=== PATIENT | female | born 1990 | race Caucasian/White ===

== ENCOUNTER → 2016-08-15 | Outpatient (CLI) | payer BC ==
[~2016-08-15] MED LIST: /VITACHEW PO; ASPI81TA85 PO
--- NOTE | 2016-08-15 19:03 | REP ---
Pelvic sonography: History: Left pelvic pain. Findings: Transabdominal and transvaginal scanning are performed. Uterine dimensions are normal at 7.0 x 3.3 x 5.2 cm. Endometrial echo is 0.4 cm thick and centrally placed. Uterus is somewhat retroverted. The IUD is noted in the uterine endometrium. A trace of endometrial fluid is seen. No free fluid is seen in the cul-de-sac. Visualized bladder wakefield are smooth. The ovaries are normal bilaterally. Right ovarian dimensions are 3.1 x 2.2 x 2.4 cm. The left ovary measures 2.9 x 1.8 x 1.8 cm. Normal ovarian Doppler flow is seen bilaterally. Impression: Normal pelvic sonography. Signed by Micah Calvillo MD 08/15/2016 06:54 P
== END ==
LOC: M RAD 15:15
PROVIDERS: ATTEND Obstetrics & Gynecology
DX: R10.2 Pelvic and perineal pain (principal); Z97.5 Presence of (intrauterine) contraceptive device

== ENCOUNTER → 2016-10-02 | Outpatient (REF) | payer BC ==
[2016-10-02 14:21] LABS: BASO # 0.1 K/mm3 (0.0-0.2); BASO % 0.8 % (0.0-1.0); EOS # 0.2 K/mm3 (0.0-0.50); EOS % 2.1 % (0.0-3.0); LARGE UNSTAINED CELL # 0.1 K/mm3 (0.0-0.4); LARGE UNSTAINED CELL % 1.8 % (0.0-4.0); LYMPH # 2.3 K/mm3 (1.5-6.5); MEAN CORPUSCULAR HEMOGLOBIN 31.6 pg (27.0-33.0); MEAN CORPUSCULAR HGB CONC 33.3 g/dl (32.0-36.5); MEAN CORPUSCULAR VOLUME 94.9 fl (80.0-96.0); MONO # 0.5 K/mm3 (0.0-0.8); MONO % 6.8 % (0.0-5.0); NEUTROPHILS # 4.2 K/mm3 (1.8-7.7); NEUTROPHILS % 58.5 % (36.0-66.0); PLATELET COUNT, AUTOMATED 306 k/mm3 (150-450); WHITE BLOOD COUNT 7.1 K/mm3 (4.0-10.0)
[2016-10-02 15:26] LABS: BLOOD UREA NITROGEN 8 MG/DL (7-18); CREATININE FOR GFR 0.68 MG/DL (0.55-1.02); GLOMERULAR FILTRATION RATE > 60.0 (>60); GLUCOSE, FASTING 72 MG/DL (70-105)
[2016-10-02 15:27] LABS: ALBUMIN/GLOBULIN RATIO 1.11 (1.00-1.93); ALKALINE PHOSPHATASE 83 U/L (45-117); ALT/SGPT 19 U/L (12-78); ANION GAP 7 MEQ/L (8-16); AST/SGOT 12 U/L (15-37); BILIRUBIN,TOTAL 0.3 MG/DL (0.2-1.0); CALCIUM LEVEL 8.6 MG/DL (8.5-10.1); CARBON DIOXIDE LEVEL 28 MEQ/L (21-32); CHLORIDE LEVEL 105 MEQ/L (98-107); FREE T4 1.25 NG/DL (0.76-1.46); POTASSIUM SERUM 3.9 MEQ/L (3.5-5.1); SODIUM LEVEL 140 MEQ/L (136-145); TOTAL PROTEIN 7.6 GM/DL (6.4-8.2)
== END ==
LOC: M LABDRAWP 13:15
PROVIDERS: ATTEND Nurse Practitioner Family
DX: F41.9 Anxiety disorder, unspecified (principal); G43.709 Chronic migraine without aura, not intractable, without status migrainosus

== ENCOUNTER → 2016-10-02 | Outpatient (REF) | payer BC | LOC: M SFHCWAGY 09:54 | PROVIDERS: ATTEND Nurse Practitioner Women's Health | DX: Z12.4 Encounter for screening for malignant neoplasm of cervix (principal); R87.610 Atypical squamous cells of undetermined significance on cytologic smear of cervix (ASC-US) ==

== ENCOUNTER → 2016-11-28 | Outpatient (CLI) | payer BC ==
[~2016-11-28] MED LIST changes: +E-Z-GAS II EFFERVESCENT PACKET (SODIUM BICARB./CITRIC ACID/SIMETHICONE) As Ordered ONE; +E-Z-HD 98% w/w 340GM SUSP BTL As Ordered ONE; +E-Z-PAQUE 96% w/w SUSP 176GM BTL As Ordered ONE; +OMEP40CA2 PO
--- NOTE | 2016-11-28 15:18 | REP ---
UPPER GI AIR CONTRAST AND SMALL BOWEL FOLLOW THROUGH: The procedure was performed under the direct supervision of Dr. Trevino. The images were reviewed with Dr. Trevino. 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 The intestinal gas pattern is nonspecific. There is a T-shaped IUD in the central pelvis. Liquid barium and gas-producing granules are given in the erect position as well a liquid barium in the prone oblique position in order to perform a double contrast upper GI examination. Additionally, liquid barium was given at the end of the examination in order to perform a small bowel follow through. The oral and pharyngeal stages of deglutition are unremarkable. Esophageal transport is prompt and efficient and there is no esophagitis, stricture, mucosal ring or hiatal hernia. There is mild gastroesophageal reflux demonstrated to below the level of the matteo. The stomach wakefield are normally outlined. The rugal folds are smooth and regular. There is no gastritis, neoplasm or ulcer disease. The duodenal wakefield are normally outlined. The mucosal folds are smooth and regular. There is no duodenitis, pancreatitis, peptic ulcer disease or neoplasm. The visualized portion of the proximal small bowel appears normal in course and caliber. The barium column was followed through the small bowel to the level of the terminal ileum. Small bowel transit time is approximately 1 hour. During fluoroscopy, gentle palpation shows all loops are freely moveable and pliable. There are no fixed or angulated loops. The small bowel mucosal pattern is normal in course and caliber. There is no transition to suggest a partial small bowel obstruction. Spot filming of terminal ileum shows it to be unremarkable. IMPRESSION: There is mild gastroesophageal reflux demonstrated to below the level of the matteo, otherwise unremarkable double contrast upper GI and small bowel follow through examination. 2 minutes and 25 seconds of fluoroscopy time was utilized for this procedure. Reviewed by YINA Hernandez 11/28/2016 03:36 PEdited and Signed by Ranjit Trevino MD 11/28/2016 10:09 P
== END ==
LOC: M RAD 09:09
PROVIDERS: ATTEND Nurse Practitioner Adult Health
DX: K21.0 Gastro-esophageal reflux disease with esophagitis (principal)

== ENCOUNTER 2016-12-18 10:35 | Emergency (ER) | payer BC ==
[~2016-12-18] VITALS: Ht 167.6 cm; Wt 90.0 kg
[~2016-12-18 10:35] MED LIST changes: -E-Z-GAS II EFFERVESCENT PACKET (SODIUM BICARB./CITRIC ACID/SIMETHICONE) As Ordered ONE; -E-Z-HD 98% w/w 340GM SUSP BTL As Ordered ONE; -E-Z-PAQUE 96% w/w SUSP 176GM BTL As Ordered ONE; -OMEP40CA2 PO
[2016-12-18] MEDS ORDERED: OMEP40CA2 PO (10:45)
--- NOTE | 2016-12-18 11:49 | REP ---
CT Head without contrast HISTORY: Trauma COMPARISON: 02/19/2009 There is no intraparenchymal hemorrhage, acute infarct, mass or midline shift. The ventricular system is normal in appearance. There is no extra cerebral collection. There is no fracture. The visualized sinuses are clear. IMPRESSION: There is no intracranial lesion. Signed by Cal Machuca MD 12/18/2016 11:40 A
[2016-12-18 12:06] VITALS: BP 111/74
== END 2016-12-18 12:05 | disposition home or self-care (01) ==
LOC: M ED 10:35
DX: S09.90XA Unspecified injury of head, initial encounter (principal); W20.8XXA Other cause of strike by thrown, projected or falling object, initial encounter; Y92.099 Unspecified place in other non-institutional residence as the place of occurrence of the external cause; Y93.89 Activity, other specified; Y99.9 Unspecified external cause status

== ENCOUNTER → 2017-03-26 | Outpatient (REF) | payer BC ==
[~2017-03-26] MED LIST changes: +OMEP40CA2 PO
== END ==
LOC: M SFHCPLAZ 11:40
PROVIDERS: ATTEND Family Medicine
DX: E55.9 Vitamin D deficiency, unspecified (principal)

== ENCOUNTER → 2017-10-13 | Outpatient (REF) | payer BC | LOC: M SFHCWAGY 10:44 | DX: Z12.4 Encounter for screening for malignant neoplasm of cervix (principal) | CPT/HCPCS: G0123 ==

== ENCOUNTER → 2017-10-31 | Outpatient (CLI) | payer BC | LOC: M LRY 16:44 | DX: M25.561 Pain in right knee (principal) | CPT/HCPCS: G0463 ==

== ENCOUNTER → 2018-06-09 | Outpatient (REF) | payer BC ==
[2018-06-09 11:28] LABS: CHOLESTEROL RISK RATIO 3.707 (<5)
== END ==
LOC: M SFHCPLAZ 09:07
PROVIDERS: ATTEND Family Medicine
DX: Z13.1 Encounter for screening for diabetes mellitus (principal); E66.9 Obesity, unspecified; Z13.220 Encounter for screening for lipoid disorders

== ENCOUNTER 2018-09-21 11:02 | Emergency (ER) | payer BC ==
[~2018-09-21] VITALS: Ht 167.6 cm; Wt 86.4 kg
[~2018-09-21 11:02] MED LIST changes: -/VITACHEW PO; +FLIN1CHW3 PO
--- NOTE | 2018-09-21 12:39 | REP ---
CT Head without contrast HISTORY: Head injury COMPARISON: 10/18/2016 There is no intraparenchymal hemorrhage, acute infarct, mass or midline shift. The ventricular system is normal in appearance. There is no extra cerebral collection. There is no fracture. The visualized sinuses are clear. IMPRESSION: There is no intracranial lesion. Electronically Signed by Cal Machuca MD 09/21/2018 12:29 P
[2018-09-21 13:12] VITALS: BP 118/65
--- NOTE | 2018-09-21 13:54 | REP ---
MAXILLOFACIAL CT WITHOUT CONTRAST: HISTORY: Injury. The sinuses are clear. The ostiomeatal units are patent. The middle and inferior nasal turbinates are partially paradoxical. There is minimal deviation of the nasal septum to the left. The cribriform plate, medial wakefield of the orbits and optic canals are intact. The carotid canals form a segment of the posterolateral wakefield of the sphenoid sinus. There is a fracture of the nasal bone. IMPRESSION: 1. There is no acute or chronic sinusitis. 2. Nasal bone fracture. Electronically Signed by Cal Machuca MD 09/21/2018 01:59 P
== END 2018-09-21 13:15 | disposition home or self-care (01) ==
LOC: M ED 11:02
DX: S02.2XXA Fracture of nasal bones, initial encounter for closed fracture (principal); W22.8XXA Striking against or struck by other objects, initial encounter; Y92.018 Other place in single-family (private) house as the place of occurrence of the external cause; Z86.73 Personal history of transient ischemic attack (TIA), and cerebral infarction without residual deficits; Z79.82 Long term (current) use of aspirin; Z88.2 Allergy status to sulfonamides; Z88.8 Allergy status to other drugs, medicaments and biological substances

== ENCOUNTER → 2018-11-23 | Outpatient (REF) | payer BC ==
[2018-11-25 14:08] LABS: HPV HYBRID CAPTURE II Negative (Negative)
== END ==
LOC: M SFHCWAGY 14:48
PROVIDERS: ATTEND Nurse Practitioner Women's Health
DX: Z12.4 Encounter for screening for malignant neoplasm of cervix (principal)

== ENCOUNTER → 2018-11-26 | Outpatient (CLI) | payer BC ==
[2018-11-26 16:36] LABS: BASO % 0.2 % (0.0-1.0); HEMATOCRIT 40.1 % (36.0-47.0); HEMOGLOBIN 13.2 g/dl (12.0-15.5); LYMPH # 1.4 10^3/uL (1.5-6.5); LYMPH % 11.3 % (24.0-44.0); MEAN CORPUSCULAR HEMOGLOBIN 31.9 pg (27.0-33.0); MEAN CORPUSCULAR HGB CONC 32.9 g/dl (32.0-36.5); MEAN CORPUSCULAR VOLUME 96.9 fl (80.0-96.0); MONO # 0.4 10^3/uL (0.0-0.8); MONO % 2.8 % (0.0-5.0); NEUTROPHILS # 10.8 10^3/uL (1.8-7.7); PLATELET COUNT, AUTOMATED 305 10^3/uL (150-450); RED BLOOD COUNT 4.14 10^6/uL (4.00-5.40); WHITE BLOOD COUNT 12.7 10^3/uL (4.0-10.0)
[2018-11-26 17:08] LABS: ALBUMIN 3.8 GM/DL (3.2-5.2); ALT/SGPT 20 U/L (12-78); BILIRUBIN,TOTAL 0.1 MG/DL (0.2-1.0); BLOOD UREA NITROGEN 12 MG/DL (7-18); CALCIUM LEVEL 9.1 MG/DL (8.5-10.1); CARBON DIOXIDE LEVEL 26 MEQ/L (21-32); CHLORIDE LEVEL 107 MEQ/L (98-107); CREATININE FOR GFR 0.72 MG/DL (0.55-1.30); FREE T4 0.98 NG/DL (0.76-1.46); GLOMERULAR FILTRATION RATE > 60.0 (>60); GLUCOSE, FASTING 101 MG/DL (70-100); POTASSIUM SERUM 4.3 MEQ/L (3.5-5.1); RHEUMATOID FACTOR QUANT < 10.0 IU/ML (<15.0); SODIUM LEVEL 141 MEQ/L (136-145); THYROID STIMULATING HORMONE 0.673 uIU/ML (0.358-3.740); TOTAL PROTEIN 7.7 GM/DL (6.4-8.2); VITAMIN B12 LEVEL 840 PG/ML
[2018-11-26 17:18] LABS: ERYTHROCYTE SEDIMENTATION RATE 10 mm/hr (0-20)
[2018-11-26 17:40] LABS: HEMOGLOBIN A1c 5.3 %
[2018-12-01 14:22] LABS: ANTINUCLEAR ANTIBODIES DIRECT Negative (Negative); VITAMIN B1 LEVEL WHOLE BLOOD 116.8 nmol/L (66.5-200.0); VITAMIN B6,PYRIDOXAL PHOSPHATE 7.7 ug/L (2.0-32.8); VITAMIN E(ALPHA TOCOPHEROL) 8.4 mg/L (5.9-19.4); VITAMIN E(GAMMA TOCOPHEROL) 1.2 mg/L (0.7-4.9)
== END ==
LOC: M LAB 16:04
PROVIDERS: ATTEND Psychiatry & Neurology Neurology
DX: R51 Headache (principal); E07.9 Disorder of thyroid, unspecified; E11.9 Type 2 diabetes mellitus without complications; R41.0 Disorientation, unspecified

== ENCOUNTER → 2020-01-06 | Outpatient (REF) | payer BC ==
[~2020-01-06] MED LIST changes: -OMEP40CA2 PO; +OMEP40CA97 PO
[2020-01-06 20:51] LABS: CHLAMYDIA DNA AMPLIFICATION POSITIVE (NEGATIVE); GC DNA AMPLIFICATION NEGATIVE (NEGATIVE)
== END ==
LOC: M SFHCWAGY 16:49
PROVIDERS: ATTEND Nurse Practitioner Women's Health
DX: Z12.4 Encounter for screening for malignant neoplasm of cervix (principal)

== ENCOUNTER → 2020-06-20 | Outpatient (REF) | payer BC ==
[~2020-06-20] MED LIST changes: +SUCR1TA PO
[2020-06-20 12:07] LABS: HIV 1&2 SCREEN CENTAUR NEGATIVE (NEGATIVE)
[2020-06-20 12:15] LABS: CHLAMYDIA DNA AMPLIFICATION NEGATIVE (NEGATIVE); GC DNA AMPLIFICATION NEGATIVE (NEGATIVE)
== END ==
LOC: M PLALAB 08:14
PROVIDERS: ATTEND Family Medicine
DX: Z11.3 Encounter for screening for infections with a predominantly sexual mode of transmission (principal)

== ENCOUNTER → 2020-11-13 | Outpatient (REF) | payer BC ==
[~2020-11-13] MED LIST changes: +OMEP40CA4 PO; -OMEP40CA97 PO
[2020-11-13 14:48] LABS: HEPATITIS B SURFACE ANTIGEN NEGATIVE (NEGATIVE); HIV 1&2 SCREEN CENTAUR NEGATIVE (NEGATIVE)
== END ==
LOC: M LAB REF 12:34
PROVIDERS: ATTEND Family Medicine Addiction Medicine
DX: Z77.21 Contact with and (suspected) exposure to potentially hazardous body fluids (principal)

== ENCOUNTER → 2020-11-15 | Outpatient (CLI) | payer BC ==
[2020-11-15 17:14] LABS: FREE T4 0.98 NG/DL (0.76-1.46); THYROID STIMULATING HORMONE 1.32 uIU/ML (0.358-3.740)
== END ==
LOC: M LAB 16:13
PROVIDERS: ATTEND Family Medicine
DX: F41.1 Generalized anxiety disorder (principal)

== ENCOUNTER → 2021-01-08 | Outpatient (REF) | payer BC | LOC: M SFHCWAGY 19:05 | PROVIDERS: ATTEND Nurse Practitioner Women's Health | DX: Z12.4 Encounter for screening for malignant neoplasm of cervix (principal) ==

== ENCOUNTER → 2021-03-08 | Outpatient (REF) | payer BC | LOC: M SFHCPLAZ 16:43 | PROVIDERS: ATTEND Family Medicine | DX: J02.9 Acute pharyngitis, unspecified (principal) ==

== ENCOUNTER → 2021-09-24 | Outpatient (CLI) | payer BC | LOC: M CARPUL 13:36 | PROVIDERS: ATTEND Internal Medicine Cardiovascular Disease | DX: R55 Syncope and collapse (principal) ==

== ENCOUNTER → 2021-11-07 | Outpatient (CLI) | payer BC ==
[2021-11-07 11:03] LABS: HEMOGLOBIN A1c 5.1 %
== END ==
LOC: M LAB 10:05
PROVIDERS: ATTEND Psychiatry & Neurology Neurology
DX: E11.9 Type 2 diabetes mellitus without complications (principal)

== ENCOUNTER → 2021-11-07 | Outpatient (CLI) | payer BC ==
[2021-11-07 10:37] LABS: BASO # 0.1 10^3/uL (0.0-0.2); BASO % 0.7 % (0.0-1.0); EOS # 0.2 10^3/uL (0.0-0.5); EOS % 2.1 % (0.0-3.0); HEMATOCRIT 42.9 % (36.0-47.0); HEMOGLOBIN 13.7 g/dl (12.0-15.5); LYMPH # 2.5 10^3/uL (1.5-5.0); LYMPH % 27.6 % (24.0-44.0); MEAN CORPUSCULAR HEMOGLOBIN 30.3 pg (27.0-33.0); MEAN CORPUSCULAR HGB CONC 31.9 g/dl (32.0-36.5); MEAN CORPUSCULAR VOLUME 94.9 fl (80.0-96.0); MONO # 0.8 10^3/uL (0.0-0.8); MONO % 8.3 % (2.0-8.0); NEUTROPHILS # 5.5 10^3/uL (1.5-8.5); PLATELET COUNT, AUTOMATED 274 10^3/uL (150-450); RED BLOOD COUNT 4.52 10^6/uL (4.00-5.40); WHITE BLOOD COUNT 9.1 10^3/uL (4.0-10.0)
[2021-11-07 11:28] LABS: BLOOD UREA NITROGEN 10 MG/DL (7-18); CALCIUM LEVEL 8.9 MG/DL (8.5-10.1); CARBON DIOXIDE LEVEL 28 MEQ/L (21-32); CHLORIDE LEVEL 108 MEQ/L (98-107); CREATININE FOR GFR 0.67 MG/DL (0.55-1.30); GLOMERULAR FILTRATION RATE > 60.0 (>60); GLUCOSE, FASTING 93 MG/DL (70-100); POTASSIUM SERUM 4.5 MEQ/L (3.5-5.1); SODIUM LEVEL 138 MEQ/L (136-145)
== END ==
LOC: M LAB 10:03
PROVIDERS: ATTEND Internal Medicine Cardiovascular Disease
DX: Z01.812 Encounter for preprocedural laboratory examination (principal); R00.2 Palpitations; R55 Syncope and collapse

== ENCOUNTER → 2022-03-27 | Outpatient (REF) | payer BC | LOC: M PLALAB 15:38 | PROVIDERS: ATTEND Nurse Practitioner Family | DX: Z12.4 Encounter for screening for malignant neoplasm of cervix (principal) ==

== ENCOUNTER → 2022-06-20 | Outpatient (REF) | payer BC ==
[2022-06-20 17:23] LABS: FREE T4 0.99 NG/DL (0.89-1.76)
[2022-06-20 17:24] LABS: THYROID STIMULATING HORMONE 1.457 uIU/ML (0.55-4.78)
== END ==
LOC: M LABWUC 16:16
PROVIDERS: ATTEND Internal Medicine Cardiovascular Disease
DX: R55 Syncope and collapse (principal); R00.2 Palpitations

== ENCOUNTER → 2023-03-30 | Outpatient (REF) | payer BC | LOC: M SFHCWAGY 15:29 | PROVIDERS: ATTEND Nurse Practitioner Family | DX: Z12.4 Encounter for screening for malignant neoplasm of cervix (principal) ==

== ENCOUNTER → 2023-12-22 | Outpatient (REF) | payer BC ==
[2023-12-22 17:36] LABS: BASO # 0.1 10^3/uL (0.0-0.2); BASO % 0.6 % (0.0-1.0); EOS # 0.2 10^3/uL (0.0-0.5); EOS % 2.2 % (0.0-3.0); HEMOGLOBIN 13.7 g/dl (12.0-15.5); LYMPH # 2.9 10^3/uL (1.5-5.0); LYMPH % 33.7 % (24.0-44.0); MEAN CORPUSCULAR HEMOGLOBIN 31.1 pg (27.0-33.0); MEAN CORPUSCULAR HGB CONC 32.6 g/dl (32.0-36.5); MEAN CORPUSCULAR VOLUME 95.2 fl (80.0-96.0); MONO # 0.6 10^3/uL (0.0-0.8); MONO % 7.1 % (2.0-8.0); NEUTROPHILS # 4.9 10^3/uL (1.5-8.5); NEUTROPHILS % 56.1 % (36.0-66.0); PLATELET COUNT, AUTOMATED 320 10^3/uL (150-450); RED BLOOD COUNT 4.41 10^6/uL (4.00-5.40); WHITE BLOOD COUNT 8.7 10^3/uL (4.0-10.0)
[2023-12-22 18:03] LABS: ALBUMIN 3.5 G/DL (3.2-5.2); ALKALINE PHOSPHATASE 120 U/L (46-116); ALT/SGPT 17 U/L (7.0-40); AST/SGOT 12 U/L (<34); BILIRUBIN,TOTAL 0.3 MG/DL (0.3-1.2); BLOOD UREA NITROGEN 11 MG/DL (9-23); CALCIUM LEVEL 9.1 MG/DL (8.5-10.1); CARBON DIOXIDE LEVEL 27 MMOL/L (20-31); CHLORIDE LEVEL 108 MMOL/L (98-107); CHOLESTEROL LEVEL 145 MG/DL (<200); CHOLESTEROL RISK RATIO 4.78 (<5); CREATININE FOR GFR 0.65 MG/DL (0.55-1.30); GLOMERULAR FILTRATION RATE > 60.0 (>60); GLUCOSE, FASTING 85 MG/DL (60-100); HDL CHOLESTEROL 30.3 MG/DL (>40); LDL CHOLESTEROL 93.9 MG/DL (<100); NON-HDL-C 114.7 MG/DL; POTASSIUM SERUM 5.1 MMOL/L (3.5-5.1); SODIUM LEVEL 135 MMOL/L (136-145); TOTAL PROTEIN 7.5 G/DL (5.7-8.2); TRIGLYCERIDES LEVEL 104 MG/DL (<150)
[2023-12-22 18:07] LABS: THYROID STIMULATING HORMONE 1.992 uIU/ML (0.55-4.78)
[2023-12-22 18:08] LABS: FREE T4 1.11 NG/DL (0.89-1.76)
[2023-12-22 18:14] LABS: HEMOGLOBIN A1c 5.1 % (4.0-6.0)
== END ==
LOC: M SFHCCLAY 10:20
PROVIDERS: ATTEND Nurse Practitioner Family
DX: Z00.00 Encounter for general adult medical examination without abnormal findings (principal); E66.01 Morbid (severe) obesity due to excess calories; F41.1 Generalized anxiety disorder; Z13.1 Encounter for screening for diabetes mellitus

== ENCOUNTER → 2024-05-18 | Outpatient (CLI) | payer BC ==
[2024-05-18 16:41] LABS: HEMOGLOBIN A1c 5.1 % (4.0-6.0)
== END ==
LOC: M PLALAB 12:36
PROVIDERS: ATTEND Nurse Practitioner Family
DX: L68.0 Hirsutism (principal)

== ENCOUNTER → 2024-06-29 | Outpatient (CLI) | payer BC | LOC: M PLALAB 10:40 | PROVIDERS: ATTEND Nurse Practitioner Family | DX: Z13.71 Encounter for nonprocreative screening for genetic disease carrier status (principal); Z80.3 Family history of malignant neoplasm of breast; Z80.41 Family history of malignant neoplasm of ovary ==

== ENCOUNTER → 2025-02-11 | Outpatient (CLI) | payer BC ==
[2025-02-11 12:50] LABS: PLATELET COUNT, AUTOMATED 356 10^3/uL (150-450)
[2025-02-11 13:02] LABS: INR 0.99
[2025-02-11 13:15] LABS: ALT/SGPT 17 U/L (7.0-40); AST/SGOT 19 U/L (<34); CALCIUM LEVEL 9.3 MG/DL (8.5-10.1); CARBON DIOXIDE LEVEL 25 MMOL/L (20-31); CHLORIDE LEVEL 106 MMOL/L (98-107); CREATININE FOR GFR 0.69 MG/DL (0.55-1.30); GLOMERULAR FILTRATION RATE > 90.0 (>60); POTASSIUM SERUM 4.6 MMOL/L (3.5-5.1); SODIUM LEVEL 142 MMOL/L (136-145)
== END ==
LOC: M LAB 12:14
PROVIDERS: ATTEND Nurse Practitioner Acute Care
DX: I67.1 Cerebral aneurysm, nonruptured (principal); I65.22 Occlusion and stenosis of left carotid artery

== ENCOUNTER → 2025-04-05 | Outpatient (REF) | payer BC ==
[2025-04-05 12:55] LABS: BASO # 0.1 10^3/uL (0.0-0.2); BASO % 0.8 % (0.0-1.0); EOS # 0.2 10^3/uL (0.0-0.5); EOS % 2.3 % (0.0-3.0); LYMPH # 2.7 10^3/uL (1.5-5.0); LYMPH % 33.6 % (24.0-44.0); MONO # 0.6 10^3/uL (0.0-0.8); MONO % 7.6 % (2.0-8.0); NEUTROPHILS # 4.4 10^3/uL (1.5-8.5); NEUTROPHILS % 55.4 % (36.0-66.0); PLATELET COUNT, AUTOMATED 338 10^3/uL (150-450)
[2025-04-05 13:23] LABS: ALT/SGPT 15 U/L (7.0-40); AST/SGOT 17 U/L (<34); CALCIUM LEVEL 8.8 MG/DL (8.5-10.1); CARBON DIOXIDE LEVEL 27 MMOL/L (20-31); CHLORIDE LEVEL 106 MMOL/L (98-107); CHOLESTEROL LEVEL 167 MG/DL (<200); CHOLESTEROL RISK RATIO 4.91 (<5); CREATININE FOR GFR 0.66 MG/DL (0.55-1.30); GLOMERULAR FILTRATION RATE > 90.0 (>60); LDL CHOLESTEROL 114.6 MG/DL (<100); NON-HDL-C 133.0 MG/DL; POTASSIUM SERUM 4.5 MMOL/L (3.5-5.1); SODIUM LEVEL 138 MMOL/L (136-145); TRIGLYCERIDES LEVEL 92 MG/DL (<150)
[2025-04-05 13:26] LABS: FREE T4 1.21 NG/DL (0.89-1.76)
[2025-04-05 14:06] LABS: ESTIMATED AVERAGE GLUCOSE 100.0 MG/DL (60-110)
== END ==
LOC: M SFHCCLAY 09:18
PROVIDERS: ATTEND Nurse Practitioner Family
DX: F41.1 Generalized anxiety disorder (principal); E66.01 Morbid (severe) obesity due to excess calories; L68.0 Hirsutism